=== PATIENT | male | born 1980 | race Two or more races ===

== ENCOUNTER 2022-01-01 12:07 | Outpatient (REF) | payer OTHER, SELFPAY ==
[2022-01-01 13:20] LABS: Erythrocyte Sedimentation Rate 2 MM/HR (0-15)
[2022-01-01 14:13] LABS: C Reactive Protein 0.04 mg/dL (< or = 0.50); Rheumatoid Factor < 15.0 IU/mL (<15.0)
[2022-01-01 14:21] LABS: Vitamin D 25-OH Total 33.2 ng/mL (>30)
[2022-01-03 11:51] LABS: Anti Nuclear Antibody Screen NEGATIVE (NEGATIVE); Antibody to SS-A Antigen <1.0 NEG AI (<1.0 NEG); Antibody to SS-B Antigen <1.0 NEG AI (<1.0 NEG)
== END 2022-01-01 12:08 | disposition home or self-care (01) ==
LOC: HO.MANLDS 12:07
PROVIDERS: PCP Physician Assistant; Visit Provider Physician Assistant
DX: M89.8X0 Other specified disorders of bone, multiple sites (principal)
CPT/HCPCS: 36415; 82306; 85652; 86038; 86039; 86140; 86235; 86431